=== PATIENT | female | born 1990 | race African-American/Black ===

== ENCOUNTER 2023-03-26 00:39 | Emergency (ER) | payer OTHER ==
[~2023-03-26] VITALS: Ht 172.7 cm; Wt 93.0 kg
[2023-03-26 00:52] VITALS: BP 130/65; PULSE 93; RESP 18; TEMP 98.1; O2SAT 99
[2023-03-26 01:36] LABS: CLARITY URINE CLOUDY (CLEAR); COLOR URINE YELLOW (YELLOW); GLUCOSE URINE NEGATIVE (NEGATIVE); KETONES URINE NEGATIVE (NEGATIVE); LEUKOCYTE ESTERASE URINE NEGATIVE (NEGATIVE); NITRITE URINE NEGATIVE (NEGATIVE); OCCULT BLOOD URINE 2+ (NEGATIVE); PH URINE 5.5 (4.5-8.0); PROTEIN URINE NEGATIVE (NEGATIVE); SPECIFIC GRAVITY URINE 1.022 (1.005-1.030); UROBILINOGEN URINE 0.2 E.U./dL (0.2-1.0)
[2023-03-26 01:39] LABS: BACTERIA URINE NONE SEEN; WBC URINE 0-2 /hpf (0-2); YEAST URINE NONE SEEN
[2023-03-26 02:36] LABS: UCG SCREEN NEGATIVE
[2023-03-26 04:33] LABS: SQUAMOUS EPITHELIAL CELL URINE FEW /lpf (RARE/1+)
== END 2023-03-26 04:45 | disposition home or self-care (01) ==
LOC: ER 00:39
DX: R20.0 Anesthesia of skin (principal); Z88.0 Allergy status to penicillin
CPT/HCPCS: 81003; 81025; 93970; 99284